=== PATIENT | female | born 1985 ===

== ENCOUNTER → 2021-06-01 | Outpatient (CLI) | payer MEDICAID ==
[~2021-06-01] VITALS: Ht 170.2 cm; Wt 90.7 kg
== END | disposition home or self-care (01) ==
LOC: Rad HDHVI 09:38
PROVIDERS: ATTEND Internal Medicine Cardiovascular Disease
DX: I10 Essential (primary) hypertension (principal); R00.2 Palpitations; R06.02 Shortness of breath; I50.33 Acute on chronic diastolic (congestive) heart failure; Z82.49 Family history of ischemic heart disease and other diseases of the circulatory system
CPT/HCPCS: 78452; 93017; 96374; A9500

== ENCOUNTER → 2021-06-02 | Outpatient (CLI) | payer MEDICAID | END | disposition home or self-care (01) | LOC: Rad HDHVI 08:58 | PROVIDERS: ATTEND Internal Medicine Cardiovascular Disease | DX: I08.1 Rheumatic disorders of both mitral and tricuspid valves (principal); I11.0 Hypertensive heart disease with heart failure; I50.33 Acute on chronic diastolic (congestive) heart failure | CPT/HCPCS: 93306 ==

== ENCOUNTER → 2024-08-27 | Outpatient (CLI) | payer MEDICAID | END | disposition home or self-care (01) | LOC: Rad HDHVI 08:55 | PROVIDERS: ATTEND Internal Medicine Cardiovascular Disease | DX: I35.1 Nonrheumatic aortic (valve) insufficiency (principal); I11.0 Hypertensive heart disease with heart failure; I50.33 Acute on chronic diastolic (congestive) heart failure | CPT/HCPCS: 93306 ==

== ENCOUNTER → 2024-09-10 | Outpatient (CLI) | payer MEDICAID ==
[~2024-09-10] VITALS: Ht 170.2 cm; Wt 93.9 kg
[~2024-09-10] MED LIST: ADENOSINE 79 MG in GIVE UN-DILUTED 0 ML IV ONE; ADENOSINE 90 MG/30 ML INJ IV ONE
[2024-09-10] MEDS: ONDANSETRON HCL 4 MG/2 ML VIAL ONE (10:53)
[2024-09-10] MEDS: ONDANSETRON HCL 4 MG/2 ML VIAL IV ONE (10:54)
== END | disposition home or self-care (01) ==
LOC: Rad HDHVI 08:55
PROVIDERS: ATTEND Internal Medicine Cardiovascular Disease
DX: I49.1 Atrial premature depolarization (principal); R00.0 Tachycardia, unspecified; R07.89 Other chest pain; I11.0 Hypertensive heart disease with heart failure; I50.33 Acute on chronic diastolic (congestive) heart failure; R00.2 Palpitations; R06.02 Shortness of breath; R42 Dizziness and giddiness; I42.0 Dilated cardiomyopathy; Z82.49 Family history of ischemic heart disease and other diseases of the circulatory system
CPT/HCPCS: 78452; 93017; A9500; J0153; J2405